=== PATIENT | female | born 1950 | race Caucasian/White ===

== ENCOUNTER 2020-07-30 00:16 | Inpatient (IN) ==
[2020-07-30] MEDS ORDERED: DOPamine 800 MG/250 ML PREMIX IV ONE (00:19)
[2020-07-30] MEDS: DOPamine 800 MG/250 ML PREMIX IV PRN ×2 (00:19→14:55)
[2020-07-30 01:05] LABS: Bacteria,Urine Many /HPF (Few); Bilirubin,Urine Negative (Negative); Blood, Urine Small mg/dL (Negative); Glucose,Urine (UA) Negative (Negative); Ketones,Urine 5 mg/dL (Negative); Nitrite,Urine Negative (Negative); Protein,Urine 100 MG/DL; RBC,Urine 34 /HPF (0-4); Transitional Epi Cells,Urine Few /HPF (<1); Urine Appearance CLOUDY (Clear); Urine Color Amber (Yellow); Urine Specific Gravity 1.016 (1.001-1.035); Urine Urobilinogen < 2.0 EU/DL (0.2-1.0); WBC,Urine 59 /HPF (0-6)
[2020-07-30 01:12] LABS: INR 1.2; PT Patient Result 13.2 SECS (9.8-11.9)
[2020-07-30] MEDS ORDERED: INSULIN REGULAR 100 UNIT/ML SUBCUT STA (01:12)
[2020-07-30] MEDS ORDERED: DEXTROSE 50% 25 GM/50 ML VIAL IV STA (01:12)
[2020-07-30] MEDS ORDERED: ALBUTEROL 2.5 MG/3 ML NEB RESP TX STA (01:12)
[2020-07-30 01:15] LABS: Albumin 3.9 G/DL (3.4-5.0); Bilirubin,Total 0.6 MG/DL (0.2-1.0); Calcium 9.6 MG/DL (8.5-10.1); Osmolality,Calculated 313.1 MOS/KG (273-304); Total Protein 7.5 G/DL (6.4-8.3)
[2020-07-30] MEDS ORDERED: DEXTROSE 50% 25 GM/50 ML SYRINGE IV ONE ×2 (01:16→03:47)
[2020-07-30 01:20] LABS: ABG Base Excess -11.9 MMOL/L (-2.5-2.5); ABG HCO3 14.8 MMOL/L (20-26); ABG Oxygen Saturation 75.7 % (95-100); ABG PCO2 51.2 MM HG (35-48); ABG PO2 49.9 MM HG (80-95); ABG TCO2 16.4 MMOL/L (23-27)
[2020-07-30 01:22] LABS: ABG PH 7.137 (7.35-7.45)
[2020-07-30 01:32] LABS: Basophils % 0.4 % (0.0-0.8); Eosinophils % 0.1 % (0.00-10.9); Hematocrit 33.6 VOL% (35.7-47.0); Hemoglobin 10.5 GM/DL (12.0-16.0); Immature Granulocytes % 1.4 %; Lymphocytes # 0.7 10*3/uL (1.4-4.0); Lymphocytes % 9.5 % (21.3-54.2); Mean Corpuscular HGB Conc 31.3 GM/DL (32-36); Mean Corpuscular Volume 94.6 FL (87-102); Mean Platelet Volume 10.3 FL (9.6-12.0); NRBC # 0.02 10*3/uL; Neutrophils % 83.6 % (38.7-73.9); Platelet Count 164 T/CUMM (130-400); Red Blood Count 3.55 MC/CUMM (3.8-5.5); Red Cell Distribution Width 17.1 % (9.3-17.3); White Blood Count 7.2 T/CUMM (4-12)
[2020-07-30] MEDS ORDERED: FUROSEMIDE 40 MG/4 ML VIAL IV STA (02:18)
[2020-07-30] MEDS ORDERED: SODIUM BICARBONATE 50 MEQ/50 ML VIAL IV STA (02:48)
[2020-07-30] MEDS ORDERED: SODIUM POLYSTYRENE SULFATE 15 GM/60 ML BOTTLE PO STA (02:48)
[2020-07-30] MEDS ORDERED: ALBUTEROL 2.5 MG/3 ML NEB RESP TX PRN (02:49)
[2020-07-30] MEDS ORDERED: SODIUM BICARBONATE 50 MEQ/50 ML SYRINGE IV ONE (03:00)
[2020-07-30] MEDS ORDERED: LEVOFLOXACIN 750 MG TABLET PO ONE (03:00)
[2020-07-30] MEDS ORDERED: DEXTROSE 50% 25 GM/50 ML VIAL IV PRN (03:53)
[2020-07-30 04:21] LABS: Calcium 9.4 MG/DL (8.5-10.1); Osmolality,Calculated 311.8 MOS/KG (273-304); Thyroid Stimulating Hormone 1.28 uIU/ml (0.358-3.74)
[2020-07-30] MEDS ORDERED: SODIUM POLYSTYRENE SULFATE 15 GM/60 ML BOTTLE PO ONE (07:11)
[2020-07-30 07:41] LABS: ABG Base Excess -11.5 MMOL/L (-2.5-2.5); ABG HCO3 15.3 MMOL/L (20-26); ABG Oxygen Saturation 96.4 % (95-100); ABG PO2 94.7 MM HG (80-95); Allen Test Positive
[2020-07-30 07:45] LABS: ABG PH 7.165 (7.35-7.45)
[2020-07-30] MEDS: SODIUM BICARB INJ 150 MEQ in DEXTROSE 5% 850 ML IV SCH ×2 (09:00→23:04)
[2020-07-30] MEDS: PANTOPRAZOLE 40 MG TABLET PO SCH (11:00)
[2020-07-30] MEDS: SODIUM ZIRCONIUM CYCLOSILICATE 10 GM PACK PO SCH (11:00)
[2020-07-30 13:30] LABS: Calcium 9.3 MG/DL (8.5-10.1); Osmolality,Calculated 321.5 MOS/KG (273-304)
[2020-07-30] MEDS: SODIUM POLYSTYRENE SULFATE 15 GM/60 ML BOTTLE PO SCH ×2 (17:05→23:55)
[2020-07-30 20:54] LABS: Osmolality,Calculated 323.3 MOS/KG (273-304)
[2020-07-31] MEDS: ONDANSETRON 4 MG/2 ML VIAL IV PRN (02:05)
[2020-07-31 03:16] LABS: ABG Base Excess -5.7 MMOL/L (-2.5-2.5); ABG HCO3 19.3 MMOL/L (20-26); ABG PCO2 60.6 MM HG (35-48); ABG TCO2 22.1 MMOL/L (23-27)
[2020-07-31 03:18] LABS: ABG PH 7.188 (7.35-7.45)
[2020-07-31 03:19] LABS: ABG PO2 39.9 MM HG (80-95)
[2020-07-31 03:40] LABS: ABG Base Excess -5.1 MMOL/L (-2.5-2.5); ABG HCO3 22.1 MMOL/L (20-26); ABG Oxygen Saturation 96.7 % (95-100); ABG PH 7.247 (7.35-7.45); ABG PO2 97.3 MM HG (80-95); ABG TCO2 23.7 MMOL/L (23-27)
[2020-07-31 04:20] LABS: Basophils % 0.3 % (0.0-0.8); Eosinophils # 0.1 10*3/uL (0.0-0.87); Eosinophils % 0.9 % (0.00-10.9); Hematocrit 27.7 VOL% (35.7-47.0); Immature Granulocytes % 0.4 %; Immature Granulocytes Absolute 0.03 #; Lymphocytes # 0.7 10*3/uL (1.4-4.0); Lymphocytes % 8.7 % (21.3-54.2); Mean Corpuscular HGB Conc 30.7 GM/DL (32-36); Mean Corpuscular Volume 95.5 FL (87-102); Mean Platelet Volume 9.7 FL (9.6-12.0); Monocytes % 7.4 % (1.7-12.7); Neutrophils % 82.3 % (38.7-73.9); Red Cell Distribution Width 17.2 % (9.3-17.3); White Blood Count 7.7 T/CUMM (4-12)
[2020-07-31 04:39] LABS: Calcium 9.1 MG/DL (8.5-10.1); Osmolality,Calculated 319.4 MOS/KG (273-304)
[2020-07-31] MEDS: SODIUM POLYSTYRENE SULFATE 15 GM/60 ML BOTTLE PO SCH ×3 (04:43→18:13)
[2020-07-31 04:51] LABS: Hemoglobin 8.5 GM/DL (12.0-16.0); Platelet Count 114 T/CUMM (130-400)
[2020-07-31] MEDS: PANTOPRAZOLE 40 MG TABLET PO SCH (09:55)
[2020-07-31] MEDS: LEVOFLOXACIN 500 MG TABLET PO SCH (09:55)
[2020-07-31] MEDS: SODIUM ZIRCONIUM CYCLOSILICATE 10 GM PACK PO SCH (09:56)
[2020-07-31 13:43] LABS: Hepatitis B Core IgM Quant 0.09 Index; Hepatitis B Surface Ag Quant < 0.10 Index; Hepatitis B Surface Ag Result Negative (Negative); Hepatitis C Virus Ab Quant < 0.02 Index; Hepatitis C Virus Ab Result Negative (Negative)
[2020-07-31] MEDS: SODIUM BICARB INJ 150 MEQ in DEXTROSE 5% 850 ML IV SCH (15:49)
[2020-07-31] MEDS ORDERED: HEPARIN 10,000 UNIT/10 ML VIAL IV SCH (17:45)
[2020-08-01] MEDS: ACETAMINOPHEN 325 MG TABLET PO PRN ×2 (01:02→21:38)
[2020-08-01 06:04] LABS: Basophils % 0.2 % (0.0-0.8); Eosinophils # 0.1 10*3/uL (0.0-0.87); Hematocrit 24.3 VOL% (35.7-47.0); Hemoglobin 7.8 GM/DL (12.0-16.0); Immature Granulocytes % 0.3 %; Immature Granulocytes Absolute 0.02 #; Lymphocytes # 0.6 10*3/uL (1.4-4.0); Lymphocytes % 9.6 % (21.3-54.2); Mean Corpuscular HGB Conc 32.1 GM/DL (32-36); Mean Corpuscular Volume 92.7 FL (87-102); Mean Platelet Volume 9.4 FL (9.6-12.0); Monocytes % 8.4 % (1.7-12.7); Neutrophils % 79.5 % (38.7-73.9); Platelet Count 106 T/CUMM (130-400); Red Blood Count 2.62 MC/CUMM (3.8-5.5); Red Cell Distribution Width 16.9 % (9.3-17.3); White Blood Count 6.4 T/CUMM (4-12)
[2020-08-01 06:27] LABS: Calcium 8.1 MG/DL (8.5-10.1); Osmolality,Calculated 308.1 MOS/KG (273-304)
[2020-08-01 06:28] LABS: Uric Acid 10.5 MG/DL (2.6-6.0)
[2020-08-01 06:42] LABS: Hypochromasia Slight; Microcytosis 1+
[2020-08-01 06:43] LABS: Ovalocytes Few; Platelet Estimate Adequate
[2020-08-01] MEDS: PANTOPRAZOLE 40 MG TABLET PO SCH (08:35)
[2020-08-01] MEDS: DESITIN 4OZ/NYSTATIN 15 GRAM MIXTURE PASTE TOP SCH ×2 (10:38→21:19)
[2020-08-01 16:58] LABS: Basophils % 0.2 % (0.0-0.8); Eosinophils # 0.1 10*3/uL (0.0-0.87); Eosinophils % 1.1 % (0.00-10.9); Hematocrit 27.1 VOL% (35.7-47.0); Hemoglobin 8.5 GM/DL (12.0-16.0); Immature Granulocytes % 0.3 %; Immature Granulocytes Absolute 0.03 #; Lymphocytes # 0.8 10*3/uL (1.4-4.0); Lymphocytes % 7.9 % (21.3-54.2); Mean Corpuscular HGB Conc 31.4 GM/DL (32-36); Mean Corpuscular Volume 92.5 FL (87-102); Mean Platelet Volume 9.2 FL (9.6-12.0); Monocytes % 7.8 % (1.7-12.7); Neutrophils % 82.7 % (38.7-73.9); Platelet Count 117 T/CUMM (130-400); Red Blood Count 2.93 MC/CUMM (3.8-5.5); Red Cell Distribution Width 16.8 % (9.3-17.3); White Blood Count 9.9 T/CUMM (4-12)
[2020-08-02] MEDS: ONDANSETRON 4 MG/2 ML VIAL IV PRN (06:10)
[2020-08-02 07:15] LABS: Basophils % 0.2 % (0.0-0.8); Eosinophils # 0.1 10*3/uL (0.0-0.87); Eosinophils % 0.9 % (0.00-10.9); Hematocrit 27.1 VOL% (35.7-47.0); Hemoglobin 8.8 GM/DL (12.0-16.0); Immature Granulocytes % 0.2 %; Immature Granulocytes Absolute 0.02 #; Lymphocytes # 0.9 10*3/uL (1.4-4.0); Mean Corpuscular HGB Conc 32.5 GM/DL (32-36); Mean Corpuscular Volume 91.9 FL (87-102); Mean Platelet Volume 9.6 FL (9.6-12.0); Monocytes % 7.3 % (1.7-12.7); Neutrophils % 82.4 % (38.7-73.9); Platelet Count 103 T/CUMM (130-400); Red Blood Count 2.95 MC/CUMM (3.8-5.5); Red Cell Distribution Width 16.5 % (9.3-17.3); White Blood Count 9.7 T/CUMM (4-12)
[2020-08-02 07:40] LABS: Bilirubin,Total 0.6 MG/DL (0.2-1.0); Calcium 8.5 MG/DL (8.5-10.1); Osmolality,Calculated 286.5 MOS/KG (273-304); Total Protein 5.7 G/DL (6.4-8.3)
[2020-08-02 07:43] LABS: Calcium 8.5 MG/DL (8.5-10.1); Osmolality,Calculated 284.7 MOS/KG (273-304)
[2020-08-02] MEDS: PANTOPRAZOLE 40 MG TABLET PO SCH (08:18)
[2020-08-02] MEDS: DESITIN 4OZ/NYSTATIN 15 GRAM MIXTURE PASTE TOP SCH ×2 (08:18→20:55)
[2020-08-02 09:04] LABS: Anisocytosis 1+; Basophilic Stippling Slight; Platelet Estimate Adequate
[2020-08-02 09:05] LABS: Macrocytosis Slight
[2020-08-02] MEDS: LEVOFLOXACIN 500 MG TABLET PO SCH (13:22)
[2020-08-03 01:19] LABS: Amorphous Crystals,Urine Occasional /HPF (Few); Bilirubin,Urine Negative (Negative); Blood, Urine Large mg/dL (Negative); Glucose,Urine (UA) Negative (Negative); Ketones,Urine Negative (Negative); Mucus,Urine Occasional /LPF (Occasional); Nitrite,Urine Negative (Negative); Protein,Urine 100 MG/DL; RBC,Urine 184 /HPF (0-4); Urine Appearance CLOUDY (Clear); Urine Color Amber (Yellow); Urine Specific Gravity 1.015 (1.001-1.035); Urine Urobilinogen < 2.0 EU/DL (0.2-1.0); WBC,Urine 126 /HPF (0-6)
[2020-08-03 06:57] LABS: Calcium 8.7 MG/DL (8.5-10.1); Osmolality,Calculated 276.8 MOS/KG (273-304)
[2020-08-03 07:23] LABS: Albumin 3.1 G/DL (3.4-5.0); Bilirubin,Total 0.8 MG/DL (0.2-1.0); Calcium 8.8 MG/DL (8.5-10.1); Osmolality,Calculated 276.8 MOS/KG (273-304)
[2020-08-03 08:26] LABS: Basophils % 0.1 % (0.0-0.8); Eosinophils # 0.1 10*3/uL (0.0-0.87); Eosinophils % 1.1 % (0.00-10.9); Hematocrit 29.6 VOL% (35.7-47.0); Hemoglobin 9.5 GM/DL (12.0-16.0); Immature Granulocytes % 0.5 %; Immature Granulocytes Absolute 0.05 #; Lymphocytes # 0.8 10*3/uL (1.4-4.0); Lymphocytes % 7.5 % (21.3-54.2); Mean Corpuscular HGB Conc 32.1 GM/DL (32-36); Mean Corpuscular Volume 92.8 FL (87-102); Mean Platelet Volume 9.3 FL (9.6-12.0); Monocytes % 7.3 % (1.7-12.7); Neutrophils % 83.5 % (38.7-73.9); Platelet Count 127 T/CUMM (130-400); Red Blood Count 3.19 MC/CUMM (3.8-5.5); Red Cell Distribution Width 16.8 % (9.3-17.3); White Blood Count 10.8 T/CUMM (4-12)
[2020-08-03 08:49] LABS: Platelet Estimate Adequate
[2020-08-03 08:55] LABS: Anisocytosis 1+; Macrocytosis Slight
[2020-08-03] MEDS: DESITIN 4OZ/NYSTATIN 15 GRAM MIXTURE PASTE TOP SCH ×2 (09:06→21:22)
[2020-08-03] MEDS: PANTOPRAZOLE 40 MG TABLET PO SCH (09:06)
[2020-08-04 06:19] LABS: Basophils % 0.1 % (0.0-0.8); Eosinophils # 0.1 10*3/uL (0.0-0.87); Eosinophils % 1.2 % (0.00-10.9); Hematocrit 27.8 VOL% (35.7-47.0); Immature Granulocytes % 0.6 %; Immature Granulocytes Absolute 0.05 #; Lymphocytes # 0.7 10*3/uL (1.4-4.0); Lymphocytes % 7.7 % (21.3-54.2); Mean Corpuscular HGB Conc 32.4 GM/DL (32-36); Mean Corpuscular Volume 92.4 FL (87-102); Mean Platelet Volume 9.4 FL (9.6-12.0); Neutrophils % 82.4 % (38.7-73.9); Platelet Count 112 T/CUMM (130-400); Red Blood Count 3.01 MC/CUMM (3.8-5.5); Red Cell Distribution Width 16.4 % (9.3-17.3); White Blood Count 8.5 T/CUMM (4-12)
[2020-08-04 06:41] LABS: Albumin 2.8 G/DL (3.4-5.0); Bilirubin,Total 0.5 MG/DL (0.2-1.0); Calcium 8.4 MG/DL (8.5-10.1); Osmolality,Calculated 281.7 MOS/KG (273-304); Total Protein 5.2 G/DL (6.4-8.3)
[2020-08-04 06:52] LABS: Calcium 8.8 MG/DL (8.5-10.1); Osmolality,Calculated 280.8 MOS/KG (273-304)
[2020-08-04] MEDS: PANTOPRAZOLE 40 MG TABLET PO SCH (08:09)
[2020-08-04] MEDS: DESITIN 4OZ/NYSTATIN 15 GRAM MIXTURE PASTE TOP SCH ×2 (08:09→21:59)
[2020-08-04] MEDS: LEVOFLOXACIN 500 MG TABLET PO SCH (08:09)
[2020-08-04 09:30] LABS: Total Protein 24 Hr Ur Result 372 MG/24HR (0-149.1); Total Volume,Urine 144 ML (400-2000)
[2020-08-04 10:17] LABS: Creatinine Clearance Urine 6.12 ML/MIN (70-115)
[2020-08-04] MEDS ORDERED: TUBERCULIN SKIN TEST 0.1 ML SYRINGE INTRADERM ONE (11:27)
[2020-08-04] MEDS: ACETAMINOPHEN 325 MG TABLET PO PRN (19:46)
[2020-08-05 06:02] LABS: Basophils % 0.2 % (0.0-0.8); Eosinophils # 0.1 10*3/uL (0.0-0.87); Eosinophils % 1.3 % (0.00-10.9); Hematocrit 28.2 VOL% (35.7-47.0); Hemoglobin 8.8 GM/DL (12.0-16.0); Immature Granulocytes % 0.5 %; Immature Granulocytes Absolute 0.03 #; Lymphocytes # 0.8 10*3/uL (1.4-4.0); Lymphocytes % 12.6 % (21.3-54.2); Mean Corpuscular HGB Conc 31.2 GM/DL (32-36); Mean Corpuscular Volume 95.3 FL (87-102); Monocytes % 12.2 % (1.7-12.7); Neutrophils % 73.2 % (38.7-73.9); Platelet Count 102 T/CUMM (130-400); Red Blood Count 2.96 MC/CUMM (3.8-5.5); Red Cell Distribution Width 16.3 % (9.3-17.3); White Blood Count 6.1 T/CUMM (4-12)
[2020-08-05 06:22] LABS: Hypochromasia 1+; Microcytosis 1+
[2020-08-05 06:23] LABS: Platelet Estimate Decreased
[2020-08-05 06:24] LABS: Osmolality,Calculated 283.8 MOS/KG (273-304)
[2020-08-05] MEDS: ACETAMINOPHEN 325 MG TABLET PO PRN (08:47)
[2020-08-05] MEDS: PANTOPRAZOLE 40 MG TABLET PO SCH (14:21)
[2020-08-05] MEDS: DESITIN 4OZ/NYSTATIN 15 GRAM MIXTURE PASTE TOP SCH ×2 (15:27→21:58)
[2020-08-06 06:07] LABS: Calcium 8.4 MG/DL (8.5-10.1); Osmolality,Calculated 278.8 MOS/KG (273-304)
[2020-08-06] MEDS: DESITIN 4OZ/NYSTATIN 15 GRAM MIXTURE PASTE TOP SCH (09:11)
[2020-08-06] MEDS: PANTOPRAZOLE 40 MG TABLET PO SCH (09:11)
[2020-08-06] MEDS: LEVOFLOXACIN 500 MG TABLET PO SCH (09:11)
[2020-08-06 12:26] VITALS: BP 149/68
== END 2020-08-06 13:12 | DRG 682 ==
LOC: N.ED 00:16 → SUATTDRO 01:34 → N.EDINP 01:34 → N.ICU 19:17 → N.3E 07-31 21:56
PROVIDERS: ADMIT Family Medicine; ATTEND Internal Medicine